=== PATIENT | female | born 1950 | race African-American/Black ===

== ENCOUNTER 2020-10-09 16:44 | Emergency (ER) | payer MEDICARE, OTHER ==
[~2020-10-09] VITALS: Ht 165.1 cm; Wt 81.6 kg
[~2020-10-09 16:44] MED LIST: ACET1TAB25 PO; AMLO10TA4 PO; ASPI-1169 PO; ATOR40TA GT; BUDE10.2 IH; CITA20TA19 GT; CLOP75TA15 PO; CODE1CAP21 PO; CYCL5TAB11 PO; DIAZ5TAB PO; DIPH25CA83 PO; DOCU-270 PO; GABA100C PO; HYDR-4354 PO; HYDR1POW18 PO; HYDR50TA8 PO; HYDROCORTISONE 1%; IPRA14.7 IH; LANS30CA54 PO; LISI40TA15 PO; METO25TA20 PO; TEMA15CA5 PO; TOPI50TA PO; ZOCOR
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
[2020-10-09] MEDS ORDERED: ACETAMINOPHEN ES 500 MG TABLET ONE (18:59)
[2020-10-09] MEDS ORDERED: ACETAMINOPHEN ES 500 MG TABLET PO ONE (19:00)
--- NOTE | 2020-10-09 19:12 | NUR ---
MARYSOL BANDAGE GIVEN TO THE PATIENT. TYLENOL PROVIDED. Patient ambulates with cane. Patient discharged to home in stable condition. Written and verbal after care instructions given. Patient verbalizes understanding of instruction.
[2020-10-09 19:13] VITALS: BP 137/90
== END 2020-10-09 19:14 | disposition home or self-care (01) ==
LOC: ER 16:56
DX: S16.1XXA Strain of muscle, fascia and tendon at neck level, initial encounter (principal); S80.01XA Contusion of right knee, initial encounter; J45.909 Unspecified asthma, uncomplicated; I10 Essential (primary) hypertension; F41.9 Anxiety disorder, unspecified; Z79.899 Other long term (current) drug therapy; Z88.0 Allergy status to penicillin; Z79.82 Long term (current) use of aspirin; V49.59XA Passenger injured in collision with other motor vehicles in traffic accident, initial encounter; Y93.89 Activity, other specified; Y92.488 Other paved roadways as the place of occurrence of the external cause; Y99.8 Other external cause status
CPT/HCPCS: 73564-TC